=== PATIENT | female | born 1955 | race African-American/Black ===

== ENCOUNTER 2017-12-25 06:46 | Day surgery (SDC) | payer BC ==
[2017-12-25] MEDS ORDERED: CEFAZOLIN 1 GM INJ (07:00)
[2017-12-25] MEDS ORDERED: SUCCINYLCHOLINE CHLORIDE 100 MG/5 ML SYG IV ×3 (07:00→11:36)
[2017-12-25 07:59] LABS: ADD MAN DIFF? NO
[2017-12-25 08:03] LABS: WHITE BLOOD COUNT 6.1 10^3/ul (4.8-10.8)
[2017-12-25 08:03] LABS: BASOPHILS % 0.5 % (0.0-2.0); EOSINOPHILS # 0.1 10^3/ul (0.0-0.5); EOSINOPHILS % 1.6 % (0.0-7.0); HEMATOCRIT 34.6 % (37.0-47.0); HEMOGLOBIN 11.4 g/dl (12.0-16.0); LYMPHOCYTES # 2.4 10^3/ul (0.8-2.9); LYMPHOCYTES % 39.5 % (15.0-51.0); MEAN CORPUSCULAR HEMOGLOBIN 27.9 pg (29.0-33.0); MEAN CORPUSCULAR HGB CONC 32.9 g/dl (32.0-37.0); MEAN CORPUSCULAR VOLUME 84.8 fl (82.0-101.0); MEAN PLATELET VOLUME 10.5 fl (7.4-10.4); MONOCYTE # 0.6 10^3/ul (0.3-0.9); MONOCYTES % 9.4 % (0.0-11.0); NEUTROPHILS % 48.7 % (39.0-77.0); PLATELET COUNT 290 10^3/UL (140-415); RED BLOOD COUNT 4.08 10^6/ul (4.20-5.40); RED CELL DISTRIBUTION WIDTH 15.2 % (11.5-14.5)
[2017-12-25 08:24] LABS: INR 1.01; PARTIAL THROMBOPLASTIN TIME 33.3 Sec (23.0-35.0); PROTIME 13.4 Sec (11.9-14.9)
[2017-12-25 08:27] LABS: ALANINE AMINOTRANSFERASE 27 IU/L (13-69); ALBUMIN 4.1 g/dl (3.3-4.9); ALBUMIN/GLOBULIN RATIO 1.64; ALKALINE PHOSPHATASE 60 IU/L (42-121); ANION GAP 8 (5-13); ASPARTATE AMINO TRANSFERASE 30 IU/L (15-46); BILIRUBIN,INDIRECT 0.6 mg/dl (0-1.1); BILIRUBIN,TOTAL 0.6 mg/dl (0.2-1.3); BLOOD UREA NITROGEN 11 mg/dl (7-20); CARBON DIOXIDE 27 mmol/L (21-31); CHLORIDE 108 mmol/L (97-110); CREATININE 0.66 mg/dl (0.44-1.00); Estimated GFR > 60 mL/min (>60); GLUCOSE 100 mg/dl (70-220); POTASSIUM 3.8 mmol/L (3.5-5.1); SODIUM 143 mmol/L (135-144); TOTAL PROTEIN 6.6 g/dl (6.1-8.1)
[2017-12-25] MEDS ORDERED: LIDOCAINE 2% (SDV) 5 ML INJ (10:17)
[2017-12-25] MEDS ORDERED: GLYCOPYRROLATE 0.4 MG INJ (10:17)
[2017-12-25] MEDS ORDERED: PROPOFOL 20 ML (10:17)
[2017-12-25] MEDS ORDERED: NEOSTIGMINE 3 MG/3 ML SYRINGE (10:18)
[2017-12-25] MEDS ORDERED: MIDAZOLAM 1 MG/ML 2 ML INJ (10:18)
[2017-12-25] MEDS ORDERED: ROCURONIUM 50 MG INJ (10:18)
[2017-12-25] MEDS ORDERED: FENTAnyl 50 MCG/ML VIAL (10:18)
[2017-12-25] MEDS ORDERED: DEXAMETHASONE 4 MG/ML 1 ML INJ (10:18)
[2017-12-25] MEDS ORDERED: ONDANSETRON 4 MG INJ (10:19)
[2017-12-25] MEDS: BUPIVACAINE 0.5%/EPI (SDV) 30 ML INJ (11:11)
[2017-12-25] MEDS ORDERED: hydrALAzine 20 MG INJ IV (12:30)
[2017-12-25] MEDS ORDERED: EPHEDrine SULFATE 50 MG/5 ML SYG IV (12:30)
[2017-12-25] MEDS ORDERED: FENTAnyl 50 MCG/ML VIAL IV ×3 (12:30)
[2017-12-25] MEDS ORDERED: HYDROmorphONE 1 MG/5 ML IV SYRINGE IV ×2 (12:30)
[2017-12-25] MEDS ORDERED: ONDANSETRON 4 MG INJ IV (12:30)
[2017-12-25] MEDS ORDERED: LABETALOL HCL 20MG INJ IV (12:30)
[2017-12-25] MEDS ORDERED: MEPERIDINE 25 MG INJ IV (12:30)
[2017-12-25] MEDS: HYDROmorphONE 1 MG/5 ML IV SYRINGE IV (12:53)
== END 2017-12-25 14:20 | disposition home or self-care (01) ==
LOC: SDS 06:46
DX: D17.1 Benign lipomatous neoplasm of skin and subcutaneous tissue of trunk (principal)
CPT/HCPCS: 21554; 71045; 80053; 85025; 85610; 85730; 88307; 93005